=== PATIENT | female | born 1965 | race Two or more races ===

== ENCOUNTER 2024-07-02 04:16 | Day surgery (SDC) | payer BC, OTHER ==
[2024-07-02 07:15] VITALS: BMI 25.9
[2024-07-02] MEDS ORDERED: LIDOCAINE 1%/EPI 1:100000 (20 ML MULTI DOSE VIAL) ONE (09:18)
[2024-07-02] MEDS ORDERED: MIDAZOLAM HCL 2 MG/2 ML SINGLE DOSE VIAL ONE (09:19)
[2024-07-02] MEDS ORDERED: PROPOFOL 20 ML ONE (09:19)
[2024-07-02] MEDS: ceFAZolin 2 GRAM PREMIX BAG IVPB ONE ×2 (10:00)
[2024-07-02] MEDS: LIDOCAINE 1%/EPI 1:100000 (20 ML MULTI DOSE VIAL) IJ ONE ×2 (10:07)
[2024-07-02] MEDS ORDERED: oxyCODONE HCL 5 MG TABLET PO PRN (10:42)
[2024-07-02] MEDS ORDERED: ONDANSETRON 4 MG/2 ML VIAL IVPUSH PRN (10:42)
[2024-07-02] MEDS ORDERED: LACTATED RINGERS SOLUTION 1,000 ML IV SCH (10:45)
[2024-07-02 13:47] VITALS: RESP 20; TEMP 97
[2024-07-02 13:51] VITALS: BP 102/55; PULSE 75
== END 2024-07-02 12:49 | disposition home or self-care (01) ==
LOC: JASU-SURG 04:16
PROVIDERS: ATTEND Surgery
PROC: 0JB70ZZ Excision of Back Subcutaneous Tissue and Fascia, Open Approach (ICD-10-PCS; principal; 2024-07-02 10:08)
DX: D17.1 Benign lipomatous neoplasm of skin and subcutaneous tissue of trunk (principal)
CPT/HCPCS: 88304-TC; 94760